=== PATIENT | male | born 1980 | race American Indian/Alaskan Native ===

== ENCOUNTER 2017-08-29 17:57 | Emergency (ER) | payer SELFPAY ==
[2017-08-29 18:02] VITALS: BP 112/84
--- NOTE | 2017-08-29 20:38 | Emergency Department Report ---
ED Headache HPI - General Chief Complaint: Upper Respiratory Infection Stated Complaint: COUGH,NAUSEA Time Seen by Provider: 08/29/17 20:06 Source: patient, family - History of Present Illness Allergies/Adverse Reactions: Allergies No Known Allergies Allergy (Unverified 08/29/17 18:02) ED Review of Systems ROS: Stated complaint: COUGH,NAUSEA Other details as noted in HPI ED Past Medical Hx - Past Medical History Previous Medical History?: No - Surgical History Past Surgical History?: No - Social History Smoking Status: Current Some Day Smoker Substance Use Type: Alcohol ED Physical Exam - General Limitations: No Limitations ED Course Vital Signs 08/29/17 18:00 Temperature 98.8 F Pulse Rate 84 Respiratory 18 Rate Blood Pressure 112/84 O2 Sat by Pulse 100 Oximetry Critical care attestation.: If time is entered above; I have spent that time in minutes in the direct care of this critically ill patient, excluding procedure time. ED Disposition Condition: Stable Referrals: PRIMARY CARE, [Primary Care Provider] - 3-5 Days
--- NOTE | 2017-08-29 20:43 | Emergency Department Report ---
Minor Respiratory - HPI Chief Complaint: Upper Respiratory Infection Stated Complaint: COUGH,NAUSEA Time Seen by Provider: 08/29/17 20:06 Duration: 2 Days Pain Location: Other (body ache) Severity: severe Minor Respiratory: Yes Rhinorrhea, Yes Able to Tolerate Fluids, Yes Cough, Yes Sick Contacts, No Sore Throat, No Ear Pain, No Hemoptysis, No Chest Pain, No Shortness of Breath, No Fever (chills) Other History: Patient reports that he is having chills, body ache, headache, and cough and nausea that started 2 days ago. Body ache is 8 out of 10. Taking [id number] cold and cough without any relief. Denies any abdominal pain or diarrhea. Denies any vomiting. Denies any back pain. Denies any urinary burning frequency or urgency. Denies any chest pain. Denies any shortness of breath. Patient has no medical problems ED Review of Systems ROS: Stated complaint: COUGH,NAUSEA Other details as noted in HPI Comment: All other systems reviewed and negative Constitutional: chills. denies: fever Eyes: denies: eye pain, eye discharge ENT: congestion. denies: ear pain, throat pain, epistaxis Respiratory: cough. denies: orthopnea, shortness of breath, SOB with exertion, SOB at rest, stridor, wheezing Cardiovascular: denies: chest pain, palpitations, dyspnea on exertion, edema, syncope, paroxysmal nocturnal dyspnea Gastrointestinal: nausea. denies: abdominal pain, vomiting, diarrhea, constipation, hematemesis, melena, hematochezia Genitourinary: denies: urgency, dysuria, frequency, hematuria, discharge Musculoskeletal: myalgia. denies: back pain, joint swelling, arthralgia Skin: denies: rash Neurological: headache. denies: weakness, numbness, paresthesias, confusion, abnormal gait, vertigo ED Past Medical Hx - Past Medical History Previous Medical History?: No - Surgical History Past Surgical History?: No - Family History Family history: no significant - Social History Smoking Status: Current Some Day Smoker Substance Use Type: Alcohol - Medications Home Medications: Home Medications Medication Instructions Recorded Confirmed Last Taken Type Cetirizine HCl [ZyrTEC] 10 mg PO 14 14 Days #14 capsule 08/29/17 Unknown Rx Fluticasone [Flonase] 1 spray NS QDAY 14 Days #1 bottle 08/29/17 Unknown Rx Ibuprofen [Motrin] 600 mg PO Q8H PRN #12 tablet 08/29/17 Unknown Rx guaiFENesin/DM 100/10MG 5 ml PO Q6H PRN #100 ml 08/29/17 Unknown Rx [Robitussin Dm] Minor Respiratory Exam - Exam General: Vital signs noted. No distress. Alert and acting appropriately. This is a 37-year-old male well-nourished well-developed in no acute distress. HEENT: Yes Moist Mucous Membranes (no peritonsillar abscess, no pharyngeal or tonsillar exudate.), Yes Rhinorrhea (nasal mucosa congested without erythema), No Pharyngeal Erythema, No Pharyngeal Exudates, No Conjuctival Injection Ear: Neither TM Bulge (congested), Neither TM Erythema, Neither EAC Pain, Neither EAC Discharge Neck: Yes Supple (full range of motion, no C-spine tenderness), No Adenopathy Lungs: Yes Good Air Exchange, Yes Cough (dry cough), No Wheezes, No Ronchi, No Stridor, No Labored Respirations, No Retractions, No Use of Accessory Muscles, No Other Abnormal Lung Sounds Heart: Yes Regular (S1, S2.), No Murmur Abdomen: Yes Tenderness (nontender the palpation in all quadrants and no), Yes Normal Bowel Sounds, No Peritoneal Signs Skin: No Rash, No Edema Neurologic: Alert and oriented, no deficits. Normal exam Musculoskeletal: Unremarkable. no clubbing, cyanosis or edema. +2 pulses. Extremities ED Course Vital Signs 08/29/17 18:00 Temperature 98.8 F Pulse Rate 84 Respiratory 18 Rate Blood Pressure 112/84 O2 Sat by Pulse 100 Oximetry - Reevaluation(s) Reevaluation #1: 08/29/17 21:13 Patient stable throughout ED stay and he refuses chest x-ray ED Medical Decision Making - Medical Decision Making ED course: Patient presented emergency room report that he has chills, body aches, headache cough and nausea this with ongoing for 2 days report bodyache is 8 out of 10. Physical findings for normal exam except for dry cough and bilateral TM congestion with erythema and bilateral nasal mucosa congested. Patient oxygenation is 100%. I ordered an x-ray to rule out any abnormality of the chest and patient refuses x-ray. I will not be able to give patient any cough suppressant due to refusal of x-ray. I discussed the patient is diagnosis and treatment plan and he voiced understanding. Patient discharged home in stable condition with prescription for Motrin, Zyrtec and Flonase, Robitussin DM and to follow-up with his primary care physician in 2 days. Critical care attestation.: If time is entered above; I have spent that time in minutes in the direct care of this critically ill patient, excluding procedure time. ED Disposition Clinical Impression: Upper respiratory infection, viral, Cough with congestion of paranasal sinus, Musculoskeletal pain Disposition: TO HOME OR SELFCARE Is pt being admited?: No Does the pt Need Aspirin: No Condition: Stable Instructions: Viral Syndrome (ED), Acute Cough (ED), Musculoskeletal Pain (ED) Additional Instructions: Please increase her fluid intake to 2-3 L of fluid per day to include orange juice and water. Follow-up with your primary care physician in 2 days and if you do not have a primary care follow-up at [facility] If your condition worsens please return to the emergency room [facility] You refused your chest x-ray today. Take Robitussin-DM for cough Take Zyrtec, Flonase for congestion and Motrin for body aches and/or fever if he develop fever. Prescriptions: Cetirizine HCl [ZyrTEC] 10 mg PO 14 14 Days #14 capsule Fluticasone [Flonase] 1 spray NS QDAY 14 Days #1 bottle guaiFENesin/DM 100/10MG [Robitussin Dm] 5 ml PO Q6H PRN #100 ml PRN Reason: Cough Ibuprofen [Motrin] 600 mg PO Q8H PRN #12 tablet PRN Reason: Pain Referrals: [facility] [Outside] - 08/31/17 Forms: Work/School Release Form(ED)
== END 2017-08-29 21:20 | disposition home or self-care (01) ==
LOC: ED 17:57
DX: J06.9 Acute upper respiratory infection, unspecified (principal); F17.200 Nicotine dependence, unspecified, uncomplicated
CPT/HCPCS: 99282

== ENCOUNTER 2022-03-24 15:34 | Emergency (ER) | payer SELFPAY ==
[2022-03-24 16:01] VITALS: BP 124/75
== END 2022-03-24 17:30 | disposition left against medical advice (07) ==
LOC: ED 15:34
DX: I10 Essential (primary) hypertension (principal); Z53.21 Procedure and treatment not carried out due to patient leaving prior to being seen by health care provider